=== PATIENT | female | born 1940 | race Caucasian/White ===

== ENCOUNTER → 2017-03-24 | Emergency (ER) | payer OTHER ==
[~2017-03-24] MED LIST: CLINDAMYCIN HCL 150 MG CAPSULE (FP) ONE
[2017-03-24 15:33] VITALS: BMI 24.7
[2017-03-24 17:11] LABS: BASOPHIL 0.7 % (0-2.0); EOSINOPHIL 0.5 % (0-4.5); MCH 29.1 pg (25.7-33.7); MCHC 32.5 g/dl (32.0-36.0); MEAN CELL VOLUME 89.6 fl (80-96); MEAN PLT VOLUME 7.8 fl (7.5-11.1); NEUTROPHILS 76.8 % (42.8-82.8); PLATELET COUNT 278 K/MM3 (134-434); RDW 13.5 % (11.6-15.6); WHITE BLOOD COUNT 11.1 K/mm3 (4.0-10.0)
--- NOTE | 2017-03-24 17:35 | PDOC ---
History of Present Illness - General Chief Complaint: Edema Stated Complaint: ABSCESS BOIL Time Seen by Provider: 03/24/17 16:24 History Source: Patient Exam Limitations: Dementia - History of Present Illness Initial Comments: 03/24/17 17:00 77-year-old female brought in by sons for evaluation of left cheek swelling likely secondary to abscess which they state patient has had before a few times over the past 2 years and responded well with by mouth antibiotics. Patient is pending dental appointment for extraction under general anesthesia since patient is uncooperative and will not keep still for exam or open mouth to perform dental work. Sons deny fever, change in appetite, change in activity, change in behavior, decreased urine output, difficulty speaking, or complaints of headache. Timing/Duration: other (3 days) Severity: mild Associated Symptoms: reports: denies symptoms Past History - Past Medical History Allergies/Adverse Reactions: Allergies Allergy/AdvReac Type Severity Reaction Status Date / Time No Known Allergies Allergy Verified 03/24/17 15:31 Home Medications: Ambulatory Orders Olmesartan/Hydrochlorothiazide [Benicar Hct 40-12.5MG Tab -] 0 tab PO 10/05/13 Nystatin/Triamcin [Nystatin-Triamcinolone Cream] 60 gm TP ASDIR #1 cream..g. 09/28 Clindamycin [Cleocin -] 300 mg PO TID #21 capsule 03/24/17 Dementia: Yes HTN: Yes - Psycho/Social/Smoking Cessation Hx Anxiety: No Suicidal Ideation: No Smoking History: Never smoked Have you smoked in the past 12 months: No Hx Alcohol Use: No Patient Lives Alone: No Lives with/in: spouse/SO Review of Systems - Review of Systems Able to Perform ROS?: Yes Constitutional: No: Symptoms Reported HEENTM: Yes: Dental Problems Respiratory: No: Symptoms reported Cardiac (ROS): No: Symptoms Reported ABD/GI: No: Symptoms Reported : No: Symptoms Reported Musculoskeletal: No: Symptoms Reported Integumentary: Yes: Lumps Neurological: No: Symptoms reported Endocrine: No: Symptoms Reported Hematologic/Lymphatic: No: Symptoms Reported *Physical Exam - Vital Signs Last Vital Signs Temp Pulse Resp BP Pulse Ox 99.2 F 80 20 134/56 96 03/24/17 15:31 03/24/17 15:31 03/24/17 15:31 03/24/17 15:31 03/24/17 15:31 - Physical Exam General Appearance: Yes: Nourished, Appropriately Dressed. No: Apparent Distress HEENT: positive: EOMI, TMs Normal. negative: Pharynx Normal (noted palpable mass to luq gingiva without drainage. Area approx. 2cm in diameter.) Neck: positive: Supple, Other (no palpable submental or submandibular nodes). negative: Lymphadenopathy (R), Lymphadenopathy (L) Respiratory/Chest: positive: Lungs Clear, Normal Breath Sounds. negative: Respiratory Distress, Accessory Muscle Use Cardiovascular: positive: Regular Rhythm, Regular Rate. negative: Murmur Integumentary: positive: Normal Color, Warm, Moist, Swelling. negative: Erythema Neurologic: positive: Alert, Motor Strength 5/5 (ambulatory) ED Treatment Course - LABORATORY CBC & Chemistry Diagram: 03/24/17 17:00 03/24/17 17:00 - RADIOLOGY Radiology Studies Ordered: Category Date Time Status FACIAL BONES CT W/O CONTRAST [CT] Stat CT Scan 03/24/17 16:35 Ordered Medical Decision Making - Medical Decision Making 03/24/17 17:00 Patient concerning for dental abscess of left upper quadrant versus other etiology. Patient ordered for CBC, comp IV access and facial CT. Patient may require a sedative for the CAT scan since patient is normally noncompliant and possibly will not sit still. 03/24/17 17:41 Laboratory Tests 03/24/17 03/24/17 17:00 17:00 WBC 11.1 H D Hgb 12.1 Hct 37.3 Plt Count 278 Neutrophils % 76.8 Sodium 139 Potassium 4.4 D Chloride 103 Carbon Dioxide 27 Anion Gap 9 BUN 16 D Creatinine 0.5 L D Creat Clearance w eGFR > 60 Random Glucose 98 Calcium 9.0 AST 22 D ALT 24 Alkaline Phosphatase 135 H D 03/24/17 18:[address] shows lucency consistent with abscess involving the left second upper molar and left first incisor tooth. There is also noted focal bone erosion with soft tissue edema abutting the left superior alveolar ridge extending into the overlying subcutaneous tissue. There is no other gross soft tissue abscess identified. Patient will be discharged home with clindamycin and recommend f/u with dentist as scheduled next week. *DC/Admit/Observation/Transfer Diagnosis at time of Disposition: Dental abscess - Discharge Dispostion Disposition: HOME Condition at time of disposition: Good - Prescriptions Prescriptions: Clindamycin [Cleocin -] 300 mg PO TID #21 capsule - Referrals Referrals: Misael Altman MD [Primary Care Provider] - - Patient Instructions Printed Discharge Instructions: Tooth Abscess Additional Instructions: Please give patient take medication as prescribed. If you need to crush the medication or mix it with a desirable food you may. Otherwise follow-up with the dentist.
[2017-03-24 17:40] LABS: ALBUMIN 3.4 g/dl (3.4-5.0); ALK PHOS 135 U/L (45-117); ANION GAP 9 (8-16); BILIRUBIN,TOTAL 0.3 mg/dL (0.2-1.0); CO2 27 mmol/L (21-32); COCKROFT - GAULT 94.4605; CREATININE 0.5 mg/dL (0.55-1.02); GLUCOSE,RANDOM 98 mg/dL (74-106); SGOT/AST 22 U/L (15-37); SGPT/ALT 24 U/L (12-78); TOT PROT 7.1 g/dl (6.4-8.2)
[2017-03-24 18:50] VITALS: BP 130/56; PULSE 78; TEMP 98
== END | disposition home or self-care (01) ==
LOC: JER 15:27
DX: K04.7 Periapical abscess without sinus (principal)
CPT/HCPCS: 36415; 70486-TC; 80053; 85025; 99281-25